=== PATIENT | male | born 1980 | race Caucasian/White ===

== ENCOUNTER 2018-08-30 15:58 | Emergency (ER) | payer MEDICAID ==
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
[2018-08-30 16:19] VITALS: BP 135/61
== END 2018-08-30 16:23 | disposition home or self-care (01) ==
DX: Z02.89 Encounter for other administrative examinations (principal); T59.91XA Toxic effect of unspecified gases, fumes and vapors, accidental (unintentional), initial encounter